=== PATIENT | male | born 1950 | race Caucasian/White ===

== ENCOUNTER → 2017-03-29 | Outpatient (CLI) | payer OTHER ==
--- NOTE | 2017-03-29 17:13 | PCVCIMAG ---
APPROVED REPORT Indications Stenosis Chews tobacco Risk Factors Hypertension: Diabetes Occluded RT ICA Doppler Spectral Velocity Analysis PSV / EDVPSV / EDV ECA (R) 143 / 13 cm/sECA (L) 90 / 15 cm/s dICA (R)dICA (L) 63 / 23 cm/s Saadia (R) 0 / 0 cm/smICA (L) 74 / 29 cm/s pICA (R) 0 / 0 cm/spICA (L) 83 / 22 cm/s Bulb (R) 38 / 6 cm/sBulb (L) 109 / 30 cm/s dCCA (R) 57 / 7 cm/sdCCA (L) 77 / 27 cm/s mCCA (R) 71 / 0 cm/smCCA (L) 91 / 22 cm/s Vert (R) 59 / 17 cm/sVert (L) 58 / 23 cm/s ICA/CCA 0.00ICA/CCA 1.08 Basic Measurements Blood Pressure: Pulses: Right Left RightLeft Brachial(Sitting) 138/649oyIm976/105mmHgTemporal Real Time B-Mode Imaging Vert. (R)AntegradeVert. (L)Antegrade Findings The right carotid bulb has severe calcified plaque. The proximal internal carotid artery shows complete, chronic occlusion The right common carotid artery shows no significant stenosis. The right external carotid artery shows <50% stenosis. The left carotid bulb has mild plaque. The left proximal internal carotid artery shows no significant stenosis. The left common carotid artery shows no significant stenosis. The left external carotid artery shows no significant stenosis. Conclusion 1. Chronically occluded Right internal carotid artery 2. Left internal carotid artery plaquing 3. Antegrade vertebral flow Similar to a study dated May 2013
== END | disposition home or self-care (01) ==
LOC: PCVCIMAG 15:24
PROVIDERS: ATTEND Internal Medicine
DX: I65.23 Occlusion and stenosis of bilateral carotid arteries (principal); I25.10 Atherosclerotic heart disease of native coronary artery without angina pectoris; I10 Essential (primary) hypertension; E78.00 Pure hypercholesterolemia, unspecified; K21.9 Gastro-esophageal reflux disease without esophagitis; I45.10 Unspecified right bundle-branch block; I25.2 Old myocardial infarction; I73.9 Peripheral vascular disease, unspecified; Z86.73 Personal history of transient ischemic attack (TIA), and cerebral infarction without residual deficits; Z79.82 Long term (current) use of aspirin; Z87.891 Personal history of nicotine dependence; Z95.1 Presence of aortocoronary bypass graft
CPT/HCPCS: 93005; 93880; G0463